=== PATIENT | male | born 1990 | race Caucasian/White ===

== ENCOUNTER 2021-08-15 10:16 | Inpatient (IN) | payer OTHER ==
[2021-08-15 10:56] VITALS: BMI 27.8
[2021-08-15] MEDS ORDERED: LOPERAMIDE HCL 2 MG CAPSULE PO PRN (12:05)
[2021-08-15] MEDS ORDERED: MAGNESIUM HYDROX 2400MG/30ML ORAL SUSPENSION 30 ML CUP PO PRN (12:05)
[2021-08-15] MEDS ORDERED: guaiFENesin 200 MG/10 ML 10 ML UNIT-DOSE CUPS PO PRN (12:05)
[2021-08-15] MEDS ORDERED: MAGNESIUM CITRATE 300 ML BOTTLE PO PRN (12:05)
[2021-08-15] MEDS ORDERED: NICOTINE 10 MG CARTRIDGE (INHALER) IH PRN (12:05)
[2021-08-15] MEDS ORDERED: P-EPHED 60MG/TRIPROLIDI 2.5MG TABLET PO PRN (12:05)
[2021-08-15] MEDS ORDERED: NICOTINE POLACRILEX 4 MG GUM BUC PRN (12:05)
[2021-08-15] MEDS ORDERED: ACETAMINOPHEN 325 MG TABLET (FP) PO PRN (12:05)
[2021-08-15] MEDS ORDERED: TUBERCULIN PPD 5 TU/0.1ML VIAL ID ONE (15:13)
[2021-08-15] MEDS: hydrOXYzine PAMOATE 25 MG CAPSULE (FP) PO SCH ×3 (15:16→21:17)
[2021-08-15] MEDS: NICOTINE 21 MG/24 HOURS TOPICAL PATCH TD SCH (15:16)
[2021-08-15] MEDS: BUPRENORPHINE/NALOXONE 2 MG/0.5 MG FILM PACKET SL SCH (16:35)
[2021-08-15] MEDS: THIAMINE HCL 100 MG TABLET (FP) PO SCH (21:17)
[2021-08-15] MEDS: MELATONIN 5 MG TABLETS PO SCH (21:17)
[2021-08-15] MEDS: ELVITEG/COB/EMTRI/TENOF (GENVOYA) TABLET (NF) PO SCH (23:30)
[2021-08-16] MEDS: hydrOXYzine PAMOATE 25 MG CAPSULE (FP) PO SCH ×5 (06:56→21:12)
[2021-08-16] MEDS: PRENATAL VITAMINS W/ FOLIC ACID TABLET (FP) PO SCH (10:06)
[2021-08-16] MEDS: NICOTINE 21 MG/24 HOURS TOPICAL PATCH TD SCH (10:06)
[2021-08-16] MEDS: ELVITEG/COB/EMTRI/TENOF (GENVOYA) TABLET (NF) PO SCH (10:06)
[2021-08-16] MEDS: BUPRENORPHINE/NALOXONE 2 MG/0.5 MG FILM PACKET SL SCH (10:07)
[2021-08-16 12:07] LABS: HEMATOCRIT 40.7 % (35.4-49); HEMOGLOBIN 13.4 GM/dL (11.7-16.9); MEAN PLT VOLUME 9.1 fl (7.5-11.1); PLATELET COUNT 256 10^3/uL (134-434); RBC 4.63 M/mm3 (4.00-5.60); RDW 14.4 % (11.9-15.9); WHITE BLOOD COUNT 7.1 K/mm3 (4.0-10.0)
[2021-08-16 12:08] LABS: PH,URINE 5.5 (5.0-8.0); URINE APPEARANCE CLEAR; URINE BILIRUBIN NEGATIVE (NEGATIVE); URINE COLOR YELLOW; URINE GLUCOSE (UA) NEGATIVE (NEGATIVE); URINE KETONE NEGATIVE (NEGATIVE); URINE LEUK ESTERASE NEGATIVE (NEGATIVE); URINE NITRITE NEGATIVE (NEGATIVE); URINE PROTEIN NEGATIVE (NEGATIVE); URINE UROBILINOGEN 0.2 mg/dL (0.2-1.0)
[2021-08-16 12:12] LABS: ALBUMIN 3.6 g/dl (3.4-5.0); BLOOD UREA NITROGEN 12.3 mg/dL (7-18)
[2021-08-16 12:17] LABS: BILIRUBIN,TOTAL 0.5 mg/dL (0.2-1); TOT PROT 7.5 g/dl (6.4-8.2)
[2021-08-16 13:43] LABS: SYPHILIS W/ RPR CONF REACTIVE (NONREACTIVE)
[2021-08-16] MEDS: THIAMINE HCL 100 MG TABLET (FP) PO SCH (21:12)
[2021-08-16] MEDS: QUEtiapine FUMARATE 50 MG TABLET PO SCH (21:12)
[2021-08-16] MEDS: MELATONIN 5 MG TABLETS PO SCH (21:12)
[2021-08-17] MEDS: hydrOXYzine PAMOATE 25 MG CAPSULE (FP) PO SCH ×5 (08:05→22:02)
[2021-08-17] MEDS: BUPRENORPHINE/NALOXONE 2 MG/0.5 MG FILM PACKET SL SCH (10:07)
[2021-08-17] MEDS: PRENATAL VITAMINS W/ FOLIC ACID TABLET (FP) PO SCH (10:07)
[2021-08-17] MEDS: ELVITEG/COB/EMTRI/TENOF (GENVOYA) TABLET (NF) PO SCH (10:07)
[2021-08-17] MEDS: NICOTINE 21 MG/24 HOURS TOPICAL PATCH TD SCH (10:07)
[2021-08-17] MEDS: IBUPROFEN 400 MG TABLET (FP) PO PRN (15:10)
[2021-08-17] MEDS: MELATONIN 5 MG TABLETS PO SCH (22:02)
[2021-08-17] MEDS: QUEtiapine FUMARATE 50 MG TABLET PO SCH (22:02)
[2021-08-17] MEDS: THIAMINE HCL 100 MG TABLET (FP) PO SCH (22:02)
[2021-08-18] MEDS: hydrOXYzine PAMOATE 25 MG CAPSULE (FP) PO SCH ×5 (06:28→21:24)
[2021-08-18] MEDS: PRENATAL VITAMINS W/ FOLIC ACID TABLET (FP) PO SCH (10:05)
[2021-08-18] MEDS: NICOTINE 21 MG/24 HOURS TOPICAL PATCH TD SCH (10:05)
[2021-08-18] MEDS: ELVITEG/COB/EMTRI/TENOF (GENVOYA) TABLET (NF) PO SCH (10:05)
[2021-08-18] MEDS: BUPRENORPHINE/NALOXONE 2 MG/0.5 MG FILM PACKET SL SCH (10:05)
[2021-08-18] MEDS: ONDANSETRON *ODT* 4 MG TABLET SL PRN (15:59)
[2021-08-18] MEDS: MAG HYDROX/AL HYDROX/SIMETH 30 ML UNIT-DOSE CUP PO PRN (20:02)
[2021-08-18] MEDS: MELATONIN 5 MG TABLETS PO SCH (21:24)
[2021-08-18] MEDS: THIAMINE HCL 100 MG TABLET (FP) PO SCH (21:24)
[2021-08-18] MEDS: QUEtiapine FUMARATE 50 MG TABLET PO SCH (21:24)
[2021-08-19] MEDS: hydrOXYzine PAMOATE 25 MG CAPSULE (FP) PO SCH ×5 (07:09→21:07)
[2021-08-19] MEDS: NICOTINE 21 MG/24 HOURS TOPICAL PATCH TD SCH (09:49)
[2021-08-19] MEDS: PRENATAL VITAMINS W/ FOLIC ACID TABLET (FP) PO SCH (09:49)
[2021-08-19] MEDS: ELVITEG/COB/EMTRI/TENOF (GENVOYA) TABLET (NF) PO SCH (09:50)
[2021-08-19] MEDS: COLLOIDAL OATMEAL 1 BAR EACH TP PRN (16:41)
[2021-08-19] MEDS: QUEtiapine FUMARATE 50 MG TABLET PO SCH (21:07)
[2021-08-19] MEDS: MELATONIN 5 MG TABLETS PO SCH (21:07)
[2021-08-19] MEDS: THIAMINE HCL 100 MG TABLET (FP) PO SCH (21:07)
[2021-08-20] MEDS: hydrOXYzine PAMOATE 25 MG CAPSULE (FP) PO SCH ×5 (07:02→21:08)
[2021-08-20] MEDS: ELVITEG/COB/EMTRI/TENOF (GENVOYA) TABLET (NF) PO SCH (10:56)
[2021-08-20] MEDS: NICOTINE 21 MG/24 HOURS TOPICAL PATCH TD SCH (10:57)
[2021-08-20] MEDS: PRENATAL VITAMINS W/ FOLIC ACID TABLET (FP) PO SCH (10:57)
[2021-08-20] MEDS: IBUPROFEN 400 MG TABLET (FP) PO PRN (10:58)
[2021-08-20] MEDS: QUEtiapine FUMARATE 50 MG TABLET PO SCH (21:08)
[2021-08-20] MEDS: THIAMINE HCL 100 MG TABLET (FP) PO SCH (21:09)
[2021-08-20] MEDS: MELATONIN 5 MG TABLETS PO SCH (21:09)
[2021-08-21] MEDS: hydrOXYzine PAMOATE 25 MG CAPSULE (FP) PO SCH ×5 (07:24→21:36)
[2021-08-21] MEDS: ELVITEG/COB/EMTRI/TENOF (GENVOYA) TABLET (NF) PO SCH (10:12)
[2021-08-21] MEDS: NICOTINE 21 MG/24 HOURS TOPICAL PATCH TD SCH (10:13)
[2021-08-21] MEDS: PRENATAL VITAMINS W/ FOLIC ACID TABLET (FP) PO SCH (10:13)
[2021-08-21] MEDS: BACITRACIN 0.9 GM PACKET TP SCH (16:50)
[2021-08-21] MEDS: THIAMINE HCL 100 MG TABLET (FP) PO SCH (21:36)
[2021-08-21] MEDS: QUEtiapine FUMARATE 50 MG TABLET PO SCH (21:36)
[2021-08-21] MEDS: MELATONIN 5 MG TABLETS PO SCH (21:36)
[2021-08-22] MEDS: hydrOXYzine PAMOATE 25 MG CAPSULE (FP) PO SCH ×5 (06:31→21:22)
[2021-08-22] MEDS: NALTREXONE HCL 50 MG TABLET PO SCH (10:19)
[2021-08-22] MEDS: ELVITEG/COB/EMTRI/TENOF (GENVOYA) TABLET (NF) PO SCH (10:19)
[2021-08-22] MEDS: PRENATAL VITAMINS W/ FOLIC ACID TABLET (FP) PO SCH (10:19)
[2021-08-22] MEDS: NICOTINE 21 MG/24 HOURS TOPICAL PATCH TD SCH (10:20)
[2021-08-22] MEDS: BACITRACIN 0.9 GM PACKET TP SCH (10:20)
[2021-08-22] MEDS: MELATONIN 5 MG TABLETS PO SCH (21:22)
[2021-08-22] MEDS: THIAMINE HCL 100 MG TABLET (FP) PO SCH (21:22)
[2021-08-22] MEDS: QUEtiapine FUMARATE 50 MG TABLET PO SCH (21:22)
[2021-08-23] MEDS: hydrOXYzine PAMOATE 25 MG CAPSULE (FP) PO SCH ×5 (06:53→21:05)
[2021-08-23] MEDS: ELVITEG/COB/EMTRI/TENOF (GENVOYA) TABLET (NF) PO SCH (10:38)
[2021-08-23] MEDS: NICOTINE 21 MG/24 HOURS TOPICAL PATCH TD SCH (10:38)
[2021-08-23] MEDS: NALTREXONE HCL 50 MG TABLET PO SCH (10:38)
[2021-08-23] MEDS: BACITRACIN 0.9 GM PACKET TP SCH (10:38)
[2021-08-23] MEDS: PRENATAL VITAMINS W/ FOLIC ACID TABLET (FP) PO SCH (10:38)
[2021-08-23] MEDS: IBUPROFEN 400 MG TABLET (FP) PO PRN (18:29)
[2021-08-23] MEDS: QUEtiapine FUMARATE 50 MG TABLET PO SCH (21:05)
[2021-08-23] MEDS: MELATONIN 5 MG TABLETS PO SCH (21:05)
[2021-08-23] MEDS: THIAMINE HCL 100 MG TABLET (FP) PO SCH (21:05)
[2021-08-23] MEDS: COLLOIDAL OATMEAL 1 BAR EACH TP PRN (21:06)
[2021-08-24] MEDS: hydrOXYzine PAMOATE 25 MG CAPSULE (FP) PO SCH ×5 (06:24→21:39)
[2021-08-24] MEDS: BACITRACIN 0.9 GM PACKET TP SCH (09:39)
[2021-08-24] MEDS: ELVITEG/COB/EMTRI/TENOF (GENVOYA) TABLET (NF) PO SCH (09:39)
[2021-08-24] MEDS: PRENATAL VITAMINS W/ FOLIC ACID TABLET (FP) PO SCH (09:40)
[2021-08-24] MEDS: NALTREXONE HCL 50 MG TABLET PO SCH (09:40)
[2021-08-24] MEDS: NICOTINE 21 MG/24 HOURS TOPICAL PATCH TD SCH (09:40)
[2021-08-24] MEDS ORDERED: MODERNA COVID-19 VACC,MRNA/PF 50 MCG/0.25 ML EACH IM ONE (12:00)
[2021-08-24] MEDS: QUEtiapine FUMARATE 50 MG TABLET PO SCH (21:39)
[2021-08-24] MEDS: THIAMINE HCL 100 MG TABLET (FP) PO SCH (21:39)
[2021-08-24] MEDS: MELATONIN 5 MG TABLETS PO SCH (21:39)
[2021-08-25] MEDS: hydrOXYzine PAMOATE 25 MG CAPSULE (FP) PO SCH ×5 (07:03→21:29)
[2021-08-25] MEDS: ELVITEG/COB/EMTRI/TENOF (GENVOYA) TABLET (NF) PO SCH (10:21)
[2021-08-25] MEDS: PRENATAL VITAMINS W/ FOLIC ACID TABLET (FP) PO SCH (10:21)
[2021-08-25] MEDS: NALTREXONE HCL 50 MG TABLET PO SCH (10:21)
[2021-08-25] MEDS: BACITRACIN 0.9 GM PACKET TP SCH (10:21)
[2021-08-25] MEDS: NICOTINE 21 MG/24 HOURS TOPICAL PATCH TD SCH (10:21)
[2021-08-25] MEDS ORDERED: ASPIRIN 325 MG TABLET PO ONE (11:00)
[2021-08-25] MEDS: THIAMINE HCL 100 MG TABLET (FP) PO SCH (21:25)
[2021-08-25] MEDS: QUEtiapine FUMARATE 50 MG TABLET PO SCH (21:25)
[2021-08-25] MEDS: MELATONIN 5 MG TABLETS PO SCH (21:25)
[2021-08-25] MEDS ORDERED: ELVITEG/COB/EMTRI/TENOF (GENVOYA) TABLET (NF) PO ONE (22:15)
[2021-08-26] MEDS: hydrOXYzine PAMOATE 25 MG CAPSULE (FP) PO SCH ×5 (07:10→21:12)
[2021-08-26] MEDS: ASPIRIN 81 MG CHEWABLE TABLETS PO SCH (09:49)
[2021-08-26] MEDS: ELVITEG/COB/EMTRI/TENOF (GENVOYA) TABLET (NF) PO SCH (09:50)
[2021-08-26] MEDS: BACITRACIN 0.9 GM PACKET TP SCH (09:50)
[2021-08-26] MEDS: PRENATAL VITAMINS W/ FOLIC ACID TABLET (FP) PO SCH (09:51)
[2021-08-26] MEDS: NALTREXONE HCL 50 MG TABLET PO SCH (09:51)
[2021-08-26] MEDS: NICOTINE 21 MG/24 HOURS TOPICAL PATCH TD SCH (09:51)
[2021-08-26] MEDS: ONDANSETRON *ODT* 4 MG TABLET SL PRN (12:34)
[2021-08-26] MEDS: MAG HYDROX/AL HYDROX/SIMETH 30 ML UNIT-DOSE CUP PO PRN ×2 (13:23→19:20)
[2021-08-26] MEDS ORDERED: PANTOPRAZOLE 40 MG TABLET PO SCH (13:30)
[2021-08-26] MEDS: QUEtiapine FUMARATE 50 MG TABLET PO SCH (21:12)
[2021-08-26] MEDS: MELATONIN 5 MG TABLETS PO SCH (21:12)
[2021-08-26] MEDS: THIAMINE HCL 100 MG TABLET (FP) PO SCH (21:12)
[2021-08-27 07:05] VITALS: BP 122/68; PULSE 66; TEMP 98.6
[2021-08-27] MEDS: hydrOXYzine PAMOATE 25 MG CAPSULE (FP) PO SCH ×2 (07:22→09:42)
[2021-08-27] MEDS: ELVITEG/COB/EMTRI/TENOF (GENVOYA) TABLET (NF) PO SCH (09:40)
[2021-08-27] MEDS: ASPIRIN 81 MG CHEWABLE TABLETS PO SCH (09:40)
[2021-08-27] MEDS: NICOTINE 21 MG/24 HOURS TOPICAL PATCH TD SCH (09:41)
[2021-08-27] MEDS: PRENATAL VITAMINS W/ FOLIC ACID TABLET (FP) PO SCH (09:41)
[2021-08-27] MEDS: NALTREXONE HCL 50 MG TABLET PO SCH (09:41)
[2021-08-27] MEDS: BACITRACIN 0.9 GM PACKET TP SCH (09:42)
[2021-08-27] MEDS ORDERED: FAMOTIDINE 20 MG TABLET PO SCH (10:00)
== END 2021-08-27 09:53 | disposition home or self-care (01) | DRG 772 ==
LOC: YASAS 10:16 → Y3W 13:12
PROVIDERS: ADMIT Allergy & Immunology; ATTEND Allergy & Immunology
PROC: HZ42ZZZ Group Counseling for Substance Abuse Treatment, Cognitive-Behavioral (ICD-10-PCS; principal; 2021-08-15)
DX: F10.20 Alcohol dependence, uncomplicated (principal); F11.20 Opioid dependence, uncomplicated; F15.20 Other stimulant dependence, uncomplicated; F17.210 Nicotine dependence, cigarettes, uncomplicated; F31.9 Bipolar disorder, unspecified; F19.282 Other psychoactive substance dependence with psychoactive substance-induced sleep disorder; F19.24 Other psychoactive substance dependence with psychoactive substance-induced mood disorder; F41.9 Anxiety disorder, unspecified; F39 Unspecified mood [affective] disorder; F43.10 Post-traumatic stress disorder, unspecified; R07.9 Chest pain, unspecified; Z62.810 Personal history of physical and sexual abuse in childhood; I25.2 Old myocardial infarction; I69.820 Aphasia following other cerebrovascular disease; Z86.19 Personal history of other infectious and parasitic diseases; Z87.11 Personal history of peptic ulcer disease; Z88.2 Allergy status to sulfonamides; Z91.018 Allergy to other foods
CPT/HCPCS: 0013A; 36415; 71045-TC-FY; 80053; 81003; 84484; 85025; 85027; 86593; 86780; 86803; 91301; 93005; 93010; 96365; 96375; 99285-25; C9803-CS; Q0162; U0003; U0005

== ENCOUNTER 2021-08-25 12:10 | Emergency (ER) | payer OTHER ==
[2021-08-25 12:18] VITALS: BMI 28.7
[2021-08-25] MEDS ORDERED: ACETAMINOPHEN 1000 MG/100 ML BAG IVPB ONE (13:49)
[2021-08-25] MEDS ORDERED: SODIUM CHLORIDE 0.9% 1000 ML INFUS.BAG IV ONE (13:49)
[2021-08-25] MEDS ORDERED: FAMOTIDINE 20 MG/50 ML IVPB 20 MG/50 ML MG IVPB ONE ×2 (13:50→14:33)
[2021-08-25 13:55] LABS: BASO % 0.4 % (0-2.0); EOS % 2.1 % (0-4.5); HEMATOCRIT 42.8 % (35.4-49); HEMOGLOBIN 14.2 GM/dL (11.7-16.9); LYMPH % 21.8 % (8-40); MCH 28.8 pg (25.7-33.7); MCHC 33.2 g/dl (32.0-35.9); MEAN CELL VOLUME 86.7 fl (80-96); MEAN PLT VOLUME 8.4 fl (7.5-11.1); MONO % 9.3 % (3.8-10.2); NEUT % 66.4 % (42.8-82.8); PLATELET COUNT 250 10^3/uL (134-434); RBC 4.93 M/mm3 (4.00-5.60); RDW 14.5 % (11.9-15.9); WHITE BLOOD COUNT 11.5 K/mm3 (4.0-10.0)
[2021-08-25 14:09] LABS: GLUCOSE,RANDOM 91 mg/dL (74-106)
[2021-08-25 14:10] LABS: ALBUMIN 3.9 g/dl (3.4-5.0); CALCIUM 9.7 mg/dL (8.5-10.1); CHLORIDE 104 mmol/L (98-107); CO2 29 mmol/L (21-32); SODIUM 137 mmol/L (136-145); TOT PROT 8.2 g/dl (6.4-8.2)
[2021-08-25 14:11] LABS: ALK PHOS 84 U/L (45-117); BILIRUBIN,TOTAL 0.3 mg/dL (0.2-1); SGOT/AST 20 U/L (15-37); SGPT/ALT 68 U/L (13-61)
[2021-08-25] MEDS ORDERED: ACETAMINOPHEN INJECTION 100 ML IVPB ONE (14:33)
[2021-08-25 14:44] VITALS: TEMP 98.1
[2021-08-25 17:04] VITALS: BP 130/76; PULSE 62
== END 2021-08-25 17:05 ==
LOC: JER 12:10
PROC: 3E033GC Introduction of Other Therapeutic Substance into Peripheral Vein, Percutaneous Approach (ICD-10-PCS; principal; 2021-08-25)
DX: R07.89 Other chest pain (principal)
CPT/HCPCS: 71045-TC-FY; 80053; 84484; 85025; 93005; 93010; 96365; 96375; 99285-25; C9803; U0003; U0005